=== PATIENT | male | born 1945 | race African-American/Black ===

== ENCOUNTER 2016-06-25 18:50 | Emergency (ER) | payer MEDICARE, MEDICAID ==
[~2016-06-25] VITALS: Ht 170.2 cm; Wt 69.0 kg
[2016-06-25 19:47] VITALS: BP 136/71
== END 2016-06-26 00:04 | disposition home or self-care (01) ==
LOC: ER 18:55
DX: R05 Cough (principal); I10 Essential (primary) hypertension; F41.9 Anxiety disorder, unspecified
CPT/HCPCS: 99283